=== PATIENT | male | born 1965 | race Native Hawaiian/Other Pacific Islander ===

== ENCOUNTER 2016-10-06 10:17 | Emergency (ER) | payer OTHER ==
[~2016-10-06] VITALS: Ht 188 cm; Wt 72.6 kg
[~2016-10-06 10:17] MED LIST: ALPR0.2566 PO; PERCOCET1 TA3 PO; TIZA4TAB5 PO; TOPAMAX100 MG OR
[2016-10-06 10:20] VITALS: TEMP 98.4
[2016-10-06 12:15] LABS: POTASSIUM 3.3 mmol/L (3.6-5.2); SODIUM 139 mmol/L (136-145)
[2016-10-06 12:18] LABS: PLATELET COUNT 132 K/uL (142-355)
[2016-10-06 13:45] VITALS: BP 132/82
== END 2016-10-06 13:46 | disposition home or self-care (01) ==
LOC: ED 10:17
PROVIDERS: Specialist
DX: R10.84 Generalized abdominal pain (principal); F19.10 Other psychoactive substance abuse, uncomplicated; N45.2 Orchitis
CPT/HCPCS: 36415; 80053; 80307; 81000; 85027; 99283; G0479

== ENCOUNTER 2017-02-20 11:06 | Emergency (ER) | payer OTHER ==
[~2017-02-20] VITALS: Ht 188 cm; Wt 74.8 kg
[2017-02-20 13:40] VITALS: BP 147/95; TEMP 98
== END 2017-02-20 13:47 | disposition home or self-care (01) ==
LOC: ED 11:06
DX: S90.212A Contusion of left great toe with damage to nail, initial encounter (principal); S91.202A Unspecified open wound of left great toe with damage to nail, initial encounter; W20.8XXA Other cause of strike by thrown, projected or falling object, initial encounter; Y92.098 Other place in other non-institutional residence as the place of occurrence of the external cause
CPT/HCPCS: 96372; 99282; J1885